=== PATIENT | female | born 1935 | race Caucasian/White ===

== ENCOUNTER 2018-03-12 10:32 | Inpatient (IN) ==
--- NOTE | 2018-03-07 09:01 | EKG Report ---
Test Performed on : 03/07/2018 08:41:05 AM Test Reason : pat Blood Pressure : / mmHG Vent. Rate : 076 BPM Atrial Rate : 227 BPM P-R Int : 000 ms QRS Dur : 080 ms QT Int : 400 ms P-R-T Axes : 000 032 -03 degrees QTc Int : 450 ms Atrial fibrillation. Nonspecific ST and T wave abnormality Abnormal ECG When compared with ECG of 07-JUL-2015 10:09, Atrial fibrillation. has replaced Sinus rhythm. Nonspecific T wave abnormality now evident in Inferior leads Nonspecific T wave abnormality now evident in Anterolateral leads Confirmed by Birgit GUPTA, Donny Babcock ([id number]) on 03/07/2018 6:46:41 PM
[2018-03-07 09:04] LABS: BASO# 0.02 X1000 (0.0-0.2); BASO% 0.3 % (0.0-0.8); EOS# 0.09 X1000 (0.0-0.7); EOS% 1.2 % (0.0-10.0); HEMATOCRIT 40.3 % (37.0-47.0); HEMOGLOBIN 12.5 g/dL (12.0-16.0); LYMPH# 2.01 X1000 (1.2-3.4); LYMPH% 26.3 % (20.5-51.1); MCH 26.7 PG (27-31); MCV 86.1 FL (81-99); MONO% 13.1 % (1.7-9.3); MPV 9.1 FL (7.4-10.4); NEUT# 4.53 X1000 (1.4-6.5); NEUT% 59.1 % (42.2-75.2); PLT 385 X1000 (130-400); RBC 4.68 XMIL (4.2-5.4); RDW 15.3 % (11.5-14.5); WBC 7.65 X1000 (4.8-10.8)
[2018-03-07 09:23] LABS: POTASSIUM 4.7 mmol/L (3.5-5.1)
[~2018-03-12 10:32] MED LIST: DIPRIVAN 1% ONE; QUELICIN (DOSE) ONE; XYLOCAINE-MPF 2% ONE
[2018-03-12] MEDS ORDERED: NORCURON ONE (10:46)
[2018-03-12] MEDS ORDERED: SODIUM CHLORIDE 0.9% 10 ML ONE (10:46)
[2018-03-12] MEDS ORDERED: FENTANYL ONE (10:50)
[2018-03-12] MEDS ORDERED: LR 1,000 ML ONE (11:49)
[2018-03-12] MEDS ORDERED: INVANZ 1 GM/NS 1 GM/50 ML IVPB ONE (11:49)
[2018-03-12] MEDS ORDERED: ENTEREG ONE (11:49)
[2018-03-12] MEDS ORDERED: EXPAREL 1.3% ONE (12:18)
[2018-03-12] MEDS ORDERED: MARCAINE 0.5% ONE (12:18)
[2018-03-12] MEDS ORDERED: ZOFRAN ONE (12:53)
[2018-03-12] MEDS ORDERED: DECADRON ONE (12:53)
[2018-03-12] MEDS ORDERED: OFIRMEV 1000 MG/ISOTONIC SOLN 1,000 MG/100 ML BOTTLE ONE (13:35)
[2018-03-12 13:59] LABS: URINE SOURCE CATH
[2018-03-12 14:07] LABS: BILIRUBIN URINE NEGATIVE (NEGATIVE); BLOOD URINE TRACE (NEGATIVE); COLOR YELLOW; GLUCOSE URINE NEGATIVE (NEGATIVE); KETONE URINE 10 mg/dL (NEGATIVE); LEUKOCYTES URINE NEGATIVE (NEGATIVE); NITRITE URINE NEGATIVE (NEGATIVE); PH URINE 7.5; PROTEIN URINE TRACE mg/dL (NEGATIVE); SP GRAVITY URINE 1.006; TURBIDITY URINE CLEAR (CLEAR); UROBILINOGEN URINE NORMAL (NORMAL)
[2018-03-12 14:08] LABS: UR EPITHELIAL CELLS <10 /HPF (<10); URINE BACTERIA NEGATIVE /HPF; URINE WBC <10 /HPF (<10)
[2018-03-12] MEDS ORDERED: ROBINUL ONE (14:50)
[2018-03-12] MEDS ORDERED: NEOSTIGMINE ONE (14:50)
[2018-03-12] MEDS ORDERED: D5 1/2 NS + KCL 20 MEQ 1,000 ML ONE (15:16)
--- NOTE | 2018-03-12 15:43 | OPERATIVE NOTE ---
PROCEDURE DATE: 03/12/2018 PREOPERATIVE DIAGNOSIS: Polyp in the cecum. POSTOPERATIVE DIAGNOSIS: Polyp in the cecum. PRINCIPAL PROCEDURE: Open right hemicolectomy. SURGEON: Miesha Dunn MD NAIL FEEDER: Michael Hook RN ANESTHESIA: General in addition to a TAP block per Anesthesia. ESTIMATED BLOOD LOSS: 100 mL. DRAINS: None. INDICATIONS: Ms Rc Padilla is an 82-year-old, white female who recently underwent colonoscopy by Dr. Franco, which documented a large polyp in the cecum and she was sent to us for resection of this polyp, which could not be removed using the colonoscope. FINDINGS: The polyp was inked and it was in the cecum. It was palpable. We ended up performing an end-to-side anastomosis between the distal ileum and the mid transverse colon. PROCEDURE: The patient underwent a bowel prep at home. She presented on the day of surgery. She went to the operating room and received general anesthesia. A Caruso catheter tube was placed. Her abdomen was prepped and draped within a sterile field. We used IV Invanz as prophylactic antibiotic. We used an Ioban on the skin and we used a wound protector within the wound. We made a midline incision with a 10 blade scalpel and this incision was carried down through the skin and subcutaneous tissue to the midline fascia, which was incised. We entered the abdomen and explored it. There was no other intra-abdominal pathology noted. The polyp was easily seen with inking in the cecum. We mobilized the right colon by retracting it medially and incising the retroperitoneum lateral to the colon, and using blunt dissection to bring it up into the wound. We used a KATERIN stapler to come across the distal ileum and we used a reload of the stapler to come initially across the cecum. We performed an end-to-side lluhr-gj-ozrrvojys colon anastomosis, but we were unhappy with the way the colon looked at the staple line. We thought it could be ischemic and we decided to perform a formal open right hemicolectomy. We came across the distal ileum and mid transverse colon again using the KATERIN stapler, and then performed an end xvalh-sa-gzac transverse colon, 2-layer sewn anastomosis. It must be noted that we removed the mesentery using cautery, hemostats, and Kasie clamps. We used 3-0 and 2-0 silk ties to control the vessels, and the right colon vessel was controlled with a stick tie. The posterior layer of our anastomosis was interrupted 3-0 silk stitches followed by a double-armed 3-0 Vicryl stitch and that was interlocking to reinforce our posterior layer, and then it was continued on the anterior layer as a canal stitch. We reinforced the anterior layer with interrupted 3-0 silk Lembert stitches. We were happy with our blood supply. There was no tension on our anastomosis. We closed the defect in the mesentery with interrupted 3-0 silk stitches. We placed the anastomosis in its anatomically correct position, made sure that the bowel laid correctly with no twisting, and the greater omentum was placed over the surface of the small bowel. We changed our gloves. The abdomen was thoroughly irrigated with warm saline and the irrigation was removed with suction. There was no evidence of ongoing bleeding. We closed the midline fascia with a running #1 Maxon stitch. We irrigated the midline wound and then closed the skin with a skin clip orchestra teacher. She tolerated the procedure well with plans for her to go the recovery room and then be admitted to the floor. cc: Miesha Dunn MD
[2018-03-12] MEDS ORDERED: ULTRAM PO PRN (17:55)
[2018-03-12 18:00] LABS: URINE SOURCE CATH
[2018-03-12 18:04] LABS: BILIRUBIN URINE NEGATIVE (NEGATIVE); BLOOD URINE TRACE (NEGATIVE); COLOR YELLOW; GLUCOSE URINE NEGATIVE (NEGATIVE); KETONE URINE 60 mg/dL (NEGATIVE); LEUKOCYTES URINE SMALL (NEGATIVE); NITRITE URINE NEGATIVE (NEGATIVE); PH URINE 6.5; PROTEIN URINE 30 mg/dL (NEGATIVE); SP GRAVITY URINE 1.017; TURBIDITY URINE CLEAR (CLEAR); UROBILINOGEN URINE NORMAL (NORMAL)
[2018-03-12 18:05] LABS: UR EPITHELIAL CELLS <10 /HPF (<10); URINE BACTERIA NEGATIVE /HPF; URINE RBC <10 /HPF (<10)
[2018-03-12] MEDS: D5 1/2 NS + KCL 20 MEQ 1,000 ML IV SCH (18:12)
[2018-03-12] MEDS: PERIDEX MT SCH (20:38)
[2018-03-12] MEDS: OFIRMEV 1000 MG/ISOTONIC SOLN 1,000 MG/100 ML BOTTLE IV SCH (20:38)
[2018-03-12] MEDS: MORPHINE IV PRN (21:36)
[2018-03-13] MEDS: OFIRMEV 1000 MG/ISOTONIC SOLN 1,000 MG/100 ML BOTTLE IV SCH ×4 (00:32→20:57)
[2018-03-13] MEDS: MORPHINE IV PRN ×2 (00:32→09:12)
[2018-03-13] MEDS: D5 1/2 NS + KCL 20 MEQ 1,000 ML IV SCH ×2 (05:45→17:59)
[2018-03-13] MEDS: LOVENOX SUBQ SCH (05:45)
--- NOTE | 2018-03-13 07:57 | PROGRESS NOTE ---
DATE: 03/13/2018 SUBJECTIVE: Ms. Katie Padilla is postop day 1 from an open right hemicolectomy for a large cecal polyp. This morning she is sitting in a chair. She seems to be mostly comfortable. She is awake, cooperative. She has no shortness of breath. OBJECTIVE: Her heart rate is 83, blood pressure 133/71, O2 saturation 95%. She is on no oxygen. She is afebrile on no antibiotics. She has a Caruso catheter tube in place. Her urine output has been adequate. Her midline wound is dressed. She did require some morphine last night. PLAN: I will start her back on her home medicines, which includes Neurontin 300 t.i.d. for burning of her lower extremities. I will plan to discontinue her Caruso tomorrow. She is on clear liquids. We will continue her IV fluids. cc: Miesha Dunn MD
[2018-03-13] MEDS: ENTEREG PO SCH ×2 (09:13→20:58)
[2018-03-13] MEDS: PERIDEX MT SCH ×2 (09:14→20:59)
[2018-03-13] MEDS: SYNTHROID PO SCH (09:18)
[2018-03-13] MEDS: NEURONTIN PO SCH ×3 (09:18→20:59)
[2018-03-13] MEDS: CARDIZEM CD PO SCH (09:19)
[2018-03-14] MEDS: OFIRMEV 1000 MG/ISOTONIC SOLN 1,000 MG/100 ML BOTTLE IV SCH ×2 (02:37→08:04)
[2018-03-14] MEDS: LOVENOX SUBQ SCH (05:45)
[2018-03-14] MEDS: D5 1/2 NS + KCL 20 MEQ 1,000 ML IV SCH ×3 (05:45→18:30)
[2018-03-14] MEDS: SYNTHROID PO SCH ×2 (05:46→06:23)
[2018-03-14] MEDS: CARDIZEM CD PO SCH (09:51)
[2018-03-14] MEDS: NEURONTIN PO SCH ×3 (09:53→18:32)
[2018-03-14] MEDS: ENTEREG PO SCH ×2 (09:53→20:06)
[2018-03-14] MEDS: PERIDEX MT SCH ×2 (09:54→20:06)
[2018-03-14] MEDS ORDERED: NORCO-7.5 PO PRN (10:59)
--- NOTE | 2018-03-14 11:11 | PROGRESS NOTE ---
DATE: 03/14/2018 SUBJECTIVE: Ms. Padilla is now postoperative day 2 from an open right hemicolectomy. She has been up again today. We have removed her Caruso catheter tube and she has voided. She is taking some clear liquids. She states that she has had some gas and had a bowel movement. She is not taking much pain medicine. Her midline incision remains dressed. There was no leakage on the dressing. OBJECTIVE: Heart rate 63, blood pressure 107/47, O2 saturation 96%. She is afebrile, on no antibiotics. She is still having her fluids go at 80 mL an hour. PLAN: Will advance her to a full liquid diet. Will decrease her IV fluids and overall I think she is doing very well so far. cc: Miesha Dunn MD
[2018-03-15] MEDS: SYNTHROID PO SCH (06:14)
[2018-03-15] MEDS: LOVENOX SUBQ SCH (06:14)
--- NOTE | 2018-03-15 08:06 | PROGRESS NOTE ---
DATE: 03/15/2018 SUBJECTIVE: Ms. Padilla is now postop day 4 from an open right hemicolectomy. She has been great about getting up out of bed in a chair. She has had very little flatus. She states that she did have a bowel movement yesterday. She had to get up a lot during the night to urinate. She does not have a Caruso catheter tube in place. She has been tolerating full liquids. OBJECTIVE: Abdomen: Her abdomen is slightly distended. General appearance: She looks more tired today. Vital signs: Her heart rate is 80, blood pressure 110/58. O2 saturation 97%. She is afebrile. Wound: Her midline incision is dressed. She is on p.o. medicines. PLAN: We will leave her on full liquids today and follow her clinical course in hopes that she has increased bowel activity and less abdominal distention. cc: Miesha Dunn MD
[2018-03-15] MEDS: NEURONTIN PO SCH ×3 (09:14→21:58)
[2018-03-15] MEDS: ENTEREG PO SCH ×2 (09:15→21:59)
[2018-03-15] MEDS: CARDIZEM CD PO SCH (09:15)
[2018-03-15] MEDS: PERIDEX MT SCH ×2 (09:16→21:59)
[2018-03-16] MEDS: D5 1/2 NS + KCL 20 MEQ 1,000 ML IV SCH ×2 (03:46→03:47)
[2018-03-16] MEDS: SYNTHROID PO SCH (06:25)
[2018-03-16] MEDS: LOVENOX SUBQ SCH (06:25)
[2018-03-16 06:44] LABS: BASO# 0.01 X1000 (0.0-0.2); BASO% 0.1 % (0.0-0.8); EOS# 0.39 X1000 (0.0-0.7); EOS% 3.9 % (0.0-10.0); HEMATOCRIT 40.3 % (37.0-47.0); HEMOGLOBIN 12.4 g/dL (12.0-16.0); IMM GRAN# 0.02 X1000 (0.0-0.04); IMM GRAN% 0.2 % (0.0-0.5); LYMPH# 2.23 X1000 (1.2-3.4); LYMPH% 22.4 % (20.5-51.1); MCH 26.4 PG (27-31); MCHC 30.8 g/dL (33-37); MCV 85.9 FL (81-99); MONO# 0.97 X1000 (0.11-0.59); MONO% 9.7 % (1.7-9.3); MPV 9.4 FL (7.4-10.4); NEUT# 6.35 X1000 (1.4-6.5); NEUT% 63.7 % (42.2-75.2); PLT 428 X1000 (130-400); RBC 4.69 XMIL (4.2-5.4); RDW 15.4 % (11.5-14.5); WBC 9.97 X1000 (4.8-10.8)
[2018-03-16 07:01] LABS: AGAP 10; BUN 7 mg/dL (8-22); CALCIUM 8.8 mg/dL (8.8-10.2); CHLORIDE 103 mmol/L (98-107); COSMO 278; CREATININE 0.6 mg/dL (0.5-0.9); ESTIMATED GFR > 60; GLUCOSE 101 mg/dL (70-104); POTASSIUM 4.4 mmol/L (3.5-5.1); SODIUM 140 mmol/L (136-145); TCO2 27 mmol/L (25-35)
[2018-03-16 08:23] VITALS: BP 121/51
[2018-03-16] MEDS: ENTEREG PO SCH (08:34)
[2018-03-16] MEDS: PERIDEX MT SCH (08:34)
[2018-03-16] MEDS: CARDIZEM CD PO SCH (08:35)
[2018-03-16] MEDS: NEURONTIN PO SCH (08:35)
--- NOTE | 2018-03-17 08:37 | DISCHARGE SUMMARY ---
ADMISSION DATE: 03/12/2018 DISCHARGE DATE: 03/16/2018 HOSPITAL COURSE: Ms. Katie Padilla is an 82-year-old white female, patient of Dr. Holloway, who recently underwent a colonoscopy by Dr. Franco which documented a large polyp in the cecum which was unresectable using the endoscope and we were asked to evaluate her for resection. On the day prior to surgery, she underwent a bowel prep at home and then presented through a.m. admissions on 03/12/2018 for a right colon resection. She went to the operating room, where she underwent an open right hemicolectomy with an end ileum to side transverse colon double-layer sewn anastomosis. We did not use an NG tube or any intra-abdominal drain. She did have a Caruso catheter tube in place. After surgery, she went to the recovery room and then the floor. We feel that her postoperative convalescence was normal. She was good about getting up out of bed daily. We were able to discontinue her Caruso on the morning of postop day 2. We slowly advanced her diet from clear liquid to a regular diet. Heart healthy diet. On the day of discharge, she was ambulating well in her room. She had a bowel movement. She also was having flatus. Her midline incision seems to be healing well. Her abdomen was mostly soft. She is awake and alert. On discharge her white blood cell count was normal. Her hematocrit was 40%. Electrolytes were within normal limits. Her heart rate was 78, blood pressure 131/55, O2 saturation was 96% on no oxygen. Plans were to discharge her home under the care of her family. She was to return to her home medications with followup in my outpatient offices this coming Sunday. She knows to contact me with any problems. cc: MD Dr. Jewel Zuluaga in [place]
--- NOTE | 2018-03-17 09:22 | DISCHARGE SUMMARY ---
ADMISSION DATE: 03/12/2018 DISCHARGE DATE: 03/16/2018 ADMITTING DIAGNOSIS: Polyp in the cecum. DISCHARGE DIAGNOSIS: Polyp in the cecum. PRINCIPAL PROCEDURE: Open right hemicolectomy on 03/12/2018. DISCHARGE DIET: Regular. DISCHARGE DISPOSITION: She will return to our outpatient offices in a week for follow-up. DISCHARGE DISABILITY: Full. DISCHARGE MEDICATIONS: She is to return to her home medications, which includes Eliquis. HOSPITAL COURSE: Ms. Katie Padilla is an 82-year-old, white female patient of Dr. No who was noted to have a large polyp in the cecum, which was unresectable by endoscopy, and we were asked to resected surgically. She underwent a bowel prep the night prior to surgery and then was admitted through a.m. admissions and underwent an open right hemicolectomy. We used a Caruso catheter tube, not an NG tube or abdominal tube. She went to the recovery room and then to the floor. We felt that her postoperative convalescence was normal. We removed her Caruso catheter tube on postop day 2. We slowly advanced her diet and on discharge, her abdomen was soft. She had a bowel movement and flatus. Her incision was healing well without evidence of infection. She was moving around easily in her room. It was felt safe to discharge her to her home under the care of her family with follow-up in our outpatient offices. DISCHARGE VITAL SIGNS: Her heart rate was 78, blood pressure 121/51, O2 saturation 99%. She was afebrile on the day of discharge. Her white blood cell count was normal. Hematocrit 40%, electrolytes were within normal limits. She was voiding without difficulty. DISCHARGE INSTRUCTIONS: She knows to contact us with any problems. Otherwise, I will see her this coming Sunday for followup. cc: Miesha Dunn MD
== END 2018-03-16 10:44 | disposition home health service (06) | DRG 331 ==
LOC: SURHOLD 10:32 → 4N 16:22
PROVIDERS: ADMIT Surgery; ATTEND Surgery
CPT/HCPCS: 80048; 81001; 85025; 86850; 86900; 86901; 87088; 88309; 93005; 93010; 94761; 94799; A9270; C9290; J0131; J0330; J1100; J1335; J1650; J2270; J2405; J3010; J3480; J7120; S0020